=== PATIENT | male | born 1990 | race Two or more races ===

== ENCOUNTER 2017-11-22 23:17 | Emergency (ER) | payer MEDICARE, MEDICAID ==
--- NOTE | 2017-11-23 00:02 | ER Document Report ---
ED Psych Disorder / Suicide - General Mode of Arrival: Ambulatory Information source: Patient <DANIEL GRADY - Last Filed: 11/23/17 00:03> <ISMAEL AMAYA - Last Filed: 11/23/17 03:12> - General Chief Complaint: Psych Problem Stated Complaint: PSYCH EVAL Time Seen by Provider: 11/22/17 23:33 Notes: Patient is a 27 year old male with ADHD, depression, insomnia, schizoaffective disorder presents to the emergency department complaining of auditory hallucinations. Patient states he is currently hearing voices in his head. He states he wants to go to [place], [place] to receive marijuana to help with his symptoms and depression. He states he has tried every medication but none of them work for him. He states he is not currently taking his medications. Patient denies suicidal or homicidal ideations. (YSABELCORRIEDAY) Past Medical History - General Information source: Patient - Social History Smoking Status: Unknown if Ever Smoked Family History: Reviewed & Not Pertinent Psychiatric Medical History: Reports: Hx Attention Deficit Hyperactivity Disorder, Hx Schizoaffective Disorder <YSABELDANIEL BAKER - Last Filed: 11/23/17 00:03> Review of Systems - Review of Systems Constitutional: No symptoms reported EENT: No symptoms reported Cardiovascular: No symptoms reported Respiratory: No symptoms reported Gastrointestinal: No symptoms reported Genitourinary: No symptoms reported Male Genitourinary: No symptoms reported Musculoskeletal: No symptoms reported Skin: No symptoms reported Hematologic/Lymphatic: No symptoms reported Neurological/Psychological: See HPI, Hallucinations -: Yes All other systems reviewed and negative <YSABELDANIEL - Last Filed: 11/23/17 00:03> Physical Exam - Vital signs Interpretation: Normal - General General appearance: Appears well, Alert - HEENT Head: Normocephalic, Atraumatic Eyes: Normal Pupils: PERRL - Respiratory Respiratory status: No respiratory distress Chest status: Nontender Breath sounds: Normal Chest palpation: Normal - Cardiovascular Rhythm: Regular Heart sounds: Normal auscultation Murmur: No - Abdominal Inspection: Normal, Obese Distension: No distension Bowel sounds: Normal Tenderness: Nontender Organomegaly: No organomegaly - Back Back: Normal, Nontender - Extremities General upper extremity: Normal inspection, Nontender, Normal color, Normal ROM , Normal temperature General lower extremity: Normal inspection, Nontender, Normal color, Normal ROM , Normal temperature, Normal weight bearing. No: Alessandro's sign - Neurological Neuro grossly intact: Yes Cognition: Normal Orientation: AAOx4 Anibal Coma Scale Eye Opening: Spontaneous [place] Coma Scale Verbal: Oriented [place] Coma Scale Motor: Obeys Commands [place] Coma Scale Total: 15 Speech: Normal Motor strength normal: LUE, RUE, LLE, RLE Sensory: Normal - Psychological Associated symptoms: Agitated, Psychomotor agitation - Skin Skin Temperature: Warm Skin Moisture: Dry Skin Color: Normal <ISMAEL AMAYA - Last Filed: 11/23/17 03:12> - Vital signs Vitals: Temp Pulse Resp BP Pulse Ox 98.2 F 96 19 126/80 H 97 11/22/17 23:19 11/22/17 23:19 11/22/17 23:19 11/22/17 23:19 11/22/17 23:19 Course <DANIEL GRADY - Last Filed: 11/23/17 00:03> - Laboratory Result Diagrams: 11/22/17 23:32 11/22/17 23:32 <ISMAEL AMAYA - Last Filed: 11/23/17 03:12> - Re-evaluation Re-evalutation: 11/23/17 03:10 Patient is a 27-year-old male with apparently a diagnosis of schizoaffective disorder per him. Difficult to ascertain from the patient if he has been taking medications or not but he is speaking to people in the room that are not there. States that this is been happening for a while. Denies feeling suicidal or homicidal. Patient states that he needs to get his medications adjusted and he came here for help. He is pleasant. Medically stable. Will be held for further evaluation by mental health. Of note, has been given Zyprexa because he states that he is having trouble sleeping and holding still. Also requesting Benadryl. (ISMAEL AMAYA) - Vital Signs Vital signs: Temp Pulse Resp BP Pulse Ox 98.2 F 96 19 126/80 H 97 11/22/17 23:19 11/22/17 23:19 11/22/17 23:19 11/22/17 23:19 11/22/17 23:19 - Laboratory Laboratory results interpreted by me: 11/22/17 23:32 Chloride 108 H Salicylates < 1.0 L Acetaminophen < 10 L Discharge <DANIEL GRADY - Last Filed: 11/23/17 00:03> <ISMAEL AMAYA - Last Filed: 11/23/17 03:12> - Discharge Clinical Impression: Hallucinations Condition: Stable Disposition: OTHER Instructions: Hallucinations (OM) Scribe Attestation: 11/23/17 03:12 I personally performed the services described in the documentation, reviewed and edited the documentation which was dictated to the scribe in my presence, and it accurately records my words and actions. (ISMAEL AMAYA) Scribe Documentation - Scribe Written by Rom:: Rom Membreno, 11/23/2017 00:02 acting as scribe for :: Yuriy <DANIEL GRADY - Last Filed: 11/23/17 00:03>
[2017-11-23 00:19] LABS: ABSOLUTE EOSINOPHILS # (AUTO) 0.1 10^3/uL (0.0-0.6); ABSOLUTE LYMPHOCYTES (AUTO) 3.2 10^3/uL (0.5-4.7); ABSOLUTE MONOCYTES (AUTO) 0.5 10^3/uL (0.1-1.4); ABSOLUTE NEUT (AUTO) 3.6 10^3/uL (1.7-8.2); BASOPHILS % (AUTO) 0.7 % (0-2); EOSINOPHILS % (AUTO) 1.1 % (0-6); HEMATOCRIT 45.9 % (37.9-51.0); HEMOGLOBIN 15.5 g/dL (13.5-17.0); MEAN CORPUSCULAR HEMOGLOBIN 29.7 pg (27.0-33.4); MEAN CORPUSCULAR HGB CONC 33.7 g/dL (32.0-36.0); MEAN CORPUSCULAR VOLUME 88 fl (80-97); MONOCYTES % (AUTO) 6.2 % (3-13); PLATELET COUNT 223 10^3/uL (150-450); RED BLOOD COUNT 5.21 10^6/uL (4.35-5.55); RED CELL DISTRIBUTION WIDTH 13.4 % (11.5-14.0); TOTAL CELLS COUNTED % (AUTO) 100 %; WHITE BLOOD COUNT 7.4 10^3/uL (4.0-10.5)
[2017-11-23] MEDS ORDERED: OLANZAPINE 5 MG TAB.RAPDIS PO ONE (00:30)
[2017-11-23 00:32] LABS: ALANINE AMINOTRANSFERASE 37 U/L (21-72); ALBUMIN 4.5 g/dL (3.5-5.0); ALKALINE PHOSPHATASE 68 U/L (38-126); ANION GAP 15 (5-19); ASPARTATE AMINO TRANSFERASE 29 U/L (17-59); BILIRUBIN,DIRECT 0.3 mg/dL (0.0-0.4); BILIRUBIN,TOTAL 0.4 mg/dL (0.2-1.3); BLOOD UREA NITROGEN 20 mg/dL (7-20); CALCIUM 9.8 mg/dL (8.4-10.2); CARBON DIOXIDE 22 mmol/L (22-30); CHLORIDE 108 mmol/L (98-107); GLUCOSE 86 mg/dL (75-110); POTASSIUM 4.3 mmol/L (3.6-5.0); SODIUM 144.9 mmol/L (137-145)
[2017-11-23 00:33] LABS: ACETAMINOPHEN < 10 ug/mL (10-30); ALCOHOL < 10 mg/dL (NONE DETECTED); SALICYLATE < 1.0 mg/dL (2.0-20.0)
[2017-11-23 01:19] LABS: APPEARANCE,URINE CLEAR; BILIRUBIN,URINE NEGATIVE (NEGATIVE); COLOR,URINE YELLOW; GLUCOSE, URINE NEGATIVE (NEGATIVE); KETONES,URINE NEGATIVE (NEGATIVE); LEUKOCYTE ESTERASE,URINE NEGATIVE (NEGATIVE); NITRITE,URINE NEGATIVE (NEGATIVE); PROTEIN,URINE NEGATIVE (NEGATIVE); URINE SPECIFIC GRAVITY 1.029; UROBILINOGEN,URINE NEGATIVE mg/dL (<2.0)
[2017-11-23] MEDS ORDERED: DIPHENHYDRAMINE HCL 50 MG CAPSULE PO ONE (01:43)
[2017-11-23 01:48] LABS: URINE AMPHETAMINES SCREEN NEGATIVE; URINE BARBITURATES SCREEN NEGATIVE; URINE BENZODIAZEPINES SCREEN NEGATIVE; URINE COCAINE SCREEN NEGATIVE; URINE MARIJUANA (THC) SCREEN NEGATIVE; URINE METHADONE SCREEN NEGATIVE; URINE PHENCYCLIDINE SCREEN NEGATIVE
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
[2017-11-23 09:35] VITALS: BP 128/69
--- NOTE | 2017-11-23 10:42 | EKG REPORT ---
SEVERITY:- BORDERLINE ECG - SINUS RHYTHM BORDERLINE T ABNORMALITIES, INFERIOR LEADS : Confirmed by: Henny Carbajal 23-Nov-2017 10:41:41
--- NOTE | 2017-11-25 20:23 | PSYCHOLOGICAL NOTE ---
Psych Note - Psych Note Psych Note: Patient was asleep when this Clinician entered the room. After calling his name about 4 times the patient awakened but did not sit up. patient denies SI/HI. states that he walked from is apartment to the hospital seeking ambien to help with his fears. Pt. was unable to articulate what his fears were. Pt. unable to give collateral. The collateral that is in the computer does not answer the phone. Patient pretends to be in and out of sleep. Patient did admit that he walked to the hospital to get some ambient. Pt could not name any medical or mental health providers that he is currently seeing. No medication recommendations Diagnosis: Other substance abuse disorder, F19.10 Impression/Plan: [facility] is [facility]. Clinician encouraged him to follow up with his outpatient provider at [facility].
== END 2017-11-23 11:29 | disposition home or self-care (01) ==
LOC: ER 23:17
DX: F19.10 Other psychoactive substance abuse, uncomplicated (principal); R44.0 Auditory hallucinations
CPT/HCPCS: 93005; 99284; 36415; 80307 ×4; 85025; 80053; 81001; 93010; A9270 ×2; J3490